=== PATIENT | female | born 1965 | race Asian ===

== ENCOUNTER → 2017-11-13 | Outpatient (CLI) | payer OTHER ==
[~2017-11-13] MED LIST: ASCO500T PO; CYCL10TA29 PO; DAR100 PO; ESTR0.62 PO; HYDR-317 PO; IBUP-2704 PO; IBUP800T37 PO; LISI-362 PO; MULT-1102 PO; PER PO; VITA200T PO
--- NOTE | 2017-11-13 15:26 | RADIOLOGY IMAGING REPORT ---
[place] [facility] [place]: Noni Bethea : 1965 MR: [id number] V: [id number] EXAM DATE: ORDERING PHYSICIAN: ROBERTO WALKER TECHNOLOGIST: Location: [facility] Patient: Noni Bethea : 1965 Visit/Account:[id number] Date of Sevice: 11/13/2017 Exam type: HIP LEFT History: Left hip pain Comparison: February 20, 2009. Findings: Two views of the left hip demonstrate no evidence of acute fracture or dislocation. No significant a rthritic changes identified. No lytic or blastic bone lesion is seen. IMPRESSION: 1. No osteoarticular abnormality the left hip is seen Report Dictated By: Mallika Bailey MD at 11/13/2017 3:21 PM Report E-Signed By: Mallika Bailey MD at 11/13/2017 3:22 PM WSN:[email or web address]
--- NOTE | 2017-11-13 15:27 | RADIOLOGY IMAGING REPORT ---
[place] [facility] [place] Noni Bethea : 1965 MR: [id number] V: [id number] EXAM DATE: ORDERING PHYSICIAN: ROBERTO WALKER TECHNOLOGIST: Location: [facility] Patient: Noni Bethea : 1965 Visit/Account:[id number] Date of Sevice: 11/13/2017 Exam type: LUMBAR SPINE 2 OR 3 VIEW History: Left hip pain, lower back pain Comparison: February 20, 2009. Findings: There are five nonrib-bearing lumbar-type vertebral bodies present there is no evidence of acute frac tures or subluxations. There is mild disc space narrowing at L5-S1 which is increased when compared the prior study. Surgical clips are identified in the right upper quadrant of the abdomen IMPRESSION: 1. Mild disc space narrowing L5-S1 which has increased when compared to the prior study Report Dictated By: Mallika Bailey MD at 11/13/2017 3:20 PM Report E-Signed By: Mallika Bailey MD at 11/13/2017 3:21 PM WSN:[email or web address]
== END ==
LOC: RAD 14:15
PROVIDERS: ATTEND Family Medicine
DX: M25.552 Pain in left hip (principal); M54.5 Low back pain
CPT/HCPCS: 72100

== ENCOUNTER → 2017-11-19 | Outpatient (CLI) | payer OTHER ==
--- NOTE | 2017-11-19 10:53 | RADIOLOGY IMAGING REPORT ---
[place] [facility] [place] NAME: Noni Bethea : 1965 MR: [id number] V: [id number] EXAM DATE: ORDERING PHYSICIAN: ROBERTO WALKER TECHNOLOGIST: Location: [facility] [place] Patient: Noni Bethea : 1965 Visit/Account:[id number] Date of Sevice: 11/19/2017 EXAMINATION: Head CT without intravenous contrast History: Headache, nausea. Vision changes. TECHNIQUE: Contiguous axial images were obtained from the skull base to the vertex without intraven ous contrast. One of the following dose optimization techniques was utilized in the performance of th is exam: Automated exposure control; adjustment of the mA and/or kV according to the patient's size; or use of an iterative reconstruction technique. Specific details can be referenced in the facility 's radiology CT exam operational policy. COMPARISON STUDIES: none FINDINGS: Visualized mastoid air cells / paranasal sinuses: negative Calvarium and scalp: negative White matter: negative Dural venous sinuses / arterial structures: negative Ventricles / sulci / fissures: negative Masses / hemorrhage / midline shift: negative Extra-axial spaces: negative IMPRESSION: Normal head CT. No evidence of a mass, acute ischemia or hemorrhage. Report Dictated By: Driss Escalona MD at 11/19/2017 10:47 AM Report E-Signed By: Driss Escalona MD at 11/19/2017 10:49 AM WSN:[id number]
== END ==
LOC: CT 09:41
PROVIDERS: ATTEND Family Medicine
DX: H53.149 Visual discomfort, unspecified (principal); R51 Headache; R11.0 Nausea
CPT/HCPCS: 70450

== ENCOUNTER → 2018-11-17 | Outpatient (CLI) | payer OTHER ==
--- NOTE | 2018-11-17 18:03 | RADIOLOGY IMAGING REPORT ---
FAC[place]: [facility] [place]IENT NAME: Noni Bethea : 1965 MR: [id number] V: [id number] EXAM DATE: ORDERING PHYSICIAN: ROBERTO WALKER TECHNOLOGIST: Location: [facility] [place] Patient: Noni Bethea : 1965 Visit/Account:[id number] Date of Sevice: 11/17/2018 Chest 2 views: HISTORY: Cough x3 weeks COMPARISON: 10/16/2014 FINDINGS: Frontal and lateral chest: The mediastinal silhouette is within normal limits. There is no infiltrate or pleural effusion. No pneumothorax. Pulmonary vasculature is normal. Osseous structures are unremarkable for age. IMPRESSION: No evidence of acute cardiopulmonary normality. Report Dictated By: Liz Holland MD at 11/17/2018 5:56 PM Report E-Signed By: Liz Holland MD at 11/17/2018 5:57 PM WSN:[id number]
--- NOTE | 2018-11-17 18:13 | EKG ---
FACILITY: [facility] - [place] PATIENT NAME: MADISON DEL VALLE : [id number] MR: [id number] V: [id number] EXAM DATE: ORDERING PHYSICIAN: ROBERTO WALKER TECHNOLOGIST: Test Reason : tachycardia Blood Pressure : / mmHG Vent. Rate : 095 BPM Atrial Rate : 095 BPM P-R Int : 144 ms QRS Dur : 088 ms QT Int : 334 ms P-R-T Axes : 050 074 053 degrees QTc Int : 419 ms Normal sinus rhythm Left ventricular hypertrophy When compared with ECG of 16-OCT-2014 13:01, Criteria for Left ventricular hypertrophy met Confirmed by Seth Trinh ([id number]) on 11/17/2018 8:31:40 PM Referred By: Confirmed By:Seth Calvo
== END ==
LOC: RAD 16:32
PROVIDERS: ATTEND Family Medicine
DX: I51.7 Cardiomegaly (principal); R05 Cough; R00.0 Tachycardia, unspecified
CPT/HCPCS: 71046; 93005